=== PATIENT | male | born 1985 | race Caucasian/White ===

== ENCOUNTER 2016-09-26 11:44 | Emergency (ER) | payer OTHER ==
[~2016-09-26] VITALS: Wt 81.0 kg
[~2016-09-26 11:44] MED LIST: CALC1TAB26 PO; DOCU-144 PO; FAMO-18 PO; HYDR25SU23 PR; HYDR25SU24 PR; MAG355OR15 PO; OMEP20CA16 PO
--- NOTE | 2016-09-26 12:28 | ERD ---
ER Documentation Chief Complaint Date/Time DATE: 09/26/16 TIME: 12:21 Chief Complaint HEADACHE X 4 DAYS HPI 31-year-old male presents to the emergency room for left-sided headache for about 5 days. Pain was described as achy non-radiating with pain rate of 2/10 at this time. He also stated that his headache was mostly on his left frontal maxillary area especially on palpation. Stated that his headache is no specific time and date of onset, but it started gradually. When asked when his headache exactly started, patient's stated that he has this kind of headache that is on and off for about a year and he last seen his primary care physician 2 months ago for the same headache. He was also referred to yeast fermentation attendant last month and was told that that his vision is normal. He also stated that his symptoms is worse whenever his knees and whenever he has seasonal allergies. Denies that this is the worst headache of his life, seizure activity, head trauma, loss of consciousness, dizziness, blurry vision, pain on eye movement, changes in his vision, photophobia, ear pain, throat pain, difficulty swallowing , neck pain, neck tenderness, shoulder pain, chest pain, cough, hemoptysis, abdominal pain, back pain, loss of appetite, nausea, vomiting, hematochezia, diarrhea, constipation, urinary symptoms, bladder and bowel incontinences, extremity weakness, extremity tenderness, numbness or tingling sensation, difficulty walking, recent travel, recent exposure to illness, recent antibiotic use in the last 3 months, fever, chills. Allergy: Tetracycline. Reaction hives. Past medical history of high cholesterol (not on medications anymore), seasonal allergies. Family history: Denies family medical history of stroke, cardiac before the age of 50. Medication: Betzy. Social: Works at a [employer]. 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 Occasional drinks alcoholic beverages (5 beers every Tuesday). Denies smoking, use of illicit drugs. ROS All systems reviewed and are negative except as per history of present illness. Medications Home Meds Active Scripts Fluticasone Propionate (Flonase Allergy Relief) 9.9 Ml [place].susp, 2 SPRAY NASAL DAILY, #1 BOTTLE TO EACH NOSTRIL Prov:TALHA CH 09/26/16 Pseudoephedrine Hcl (Sudafe 12-Hour) 120 Mg Tablet.er, 120 MG PO BID Y for CONGESTION, #14 TAB.SA Prov:TALHA CH 09/26/16 Naproxen* (Naprosyn*) 500 Mg Tablet, 500 MG PO BID Y for PAIN, #20 TAB Prov:TALHA CH 09/26/16 Calcium Carbonate/Simethicone (Maalox Advanced Tab Chew) 1 Each Tab.chew, 1 TAB PO BEFORE MEALS for PAIN, #30 TAB.CHEW Prov:BLADIMIR MONROE MD 03/02/16 Docusate Sodium* (Colace*) 100 Mg Capsule, 100 MG PO TID, #30 CAP Prov:BLADIMIR MONROE MD 03/02/16 Omeprazole* (Omeprazole*) 20 Mg Capsule.dr, 20 MG PO DAILY, #30 CAP Prov:BLADIMIR MONROE MD 03/02/16 Hydrocortisone Acetate (Anusol-Hc) 25 Mg Supp.rect, 1 SUPP WY BID Y for HEMORROID PAIN/ITCHING, #12 SUPP.RECT Prov:BLADIMIR MONROE MD 03/02/16 Hydrocortisone Acetate* (Anusol-HC*) 25 Mg/Supp.rect Supp.rect, 25 MG W[place] BID Y for PAIN, #30 SUPP.RECT Prov:ITALO TINSLEY MD 06/10/15 Famotidine* (Pepcid*) 20 Mg Tablet, 20 MG PO BID, #30 TAB Prov:ITALO TINSLEY MD 06/10/15 Mag Hydrox/Al Hydrox/Simeth (Maalox Ms Liquid) 360 Ml Oral.susp, 2 TSP PO TID for PAIN, #24 OZ Prov:ITALO TINSLEY MD 06/10/15 Docusate Sodium* (Colace*) 100 Mg Capsule, 100 MG PO BID for CONSTIPATION, #30 Prov:ITALO TINSLEY MD 06/10/15 Allergies Allergies: Coded Allergies: tetracycline (Verified Allergy, Mild, RASH, 03/02/16) PMhx/Soc History of Surgery: Yes (Hemmorhoids removal 6 yrs ago) Anesthesia Reaction: No Hx Neurological Disorder: No Hx Respiratory Disorders: No Hx Cardiac Disorders: Yes Hx Psychiatric Problems: No Hx Miscellaneous Medical Probl: No Hx Alcohol Use: No Hx Substance Use: No Hx Tobacco Use: No Physical Exam Vitals Vital Signs Date Time Temp Pulse Resp B/P Pulse Ox O2 Delivery O2 Flow Rate FiO2 09/26/16 11:53 98.0 78 18 128/71 99 Physical Exam CONSTITUTIONAL: Well-appearing; well-nourished; in no apparent distress. HEAD: Normocephalic; atraumatic. EYES: Conjunctiva clear, sclera non-icteric, EOM intact. PERRL. No pain on eye movement. Observed reading without difficulty. Ears: Hearing intact. EACs clear, TMs non-bulging, non-inflamed, translucent & mobile, ossicles normal appearance, No obstructions, no erythema, no discharges Nose: No obstructions. No polyps. No external lesions. Mild congestion. No external lesions, septum and turbinates normal. No rhinorrhea. No discharges. Frontal sinus is non-tender to palpation. Left maxillary sinus is tender to palpation. MOUTH: Moist mucous membranes, no lesion, no obstructions, no vesicles, no thrush, patent airway Throat: Uvula in midline. Right tonsil is +1 with no erythema, no exudate. Left tonsil is +1 with no erythema, no exudate. Tolerating secretions well. Good gag reflex. Patent airway. Neck: Supple, without lesions, bruits, or adenopathy. No mass. Thyroid non- enlarged and non-tender to palpation. CHEST: Symmetrical chest. Respirations even and not labored. No retractions noted. CARDIOVASCULAR: Normal S1, S2. RRR. No murmurs, gallops. RESPIRATORY: Normal chest excursion with respiration; breath sounds clear and equal bilaterally; no wheezes, rhonchi, or rales. Breathing even and unlabored. Speaking in clear, full, and complete sentences w/ ease. ABDOMEN: Normal bowel sounds normal. Soft, round, non-distended, non-guarding, no tenderness, no rebound, no organomegaly, no masses, no pulsating abdominal mass. No hernia. No peritoneal signs. : No CVA tenderness. BACK: Symmetrical shoulder. Spine is midline without deformity, tenderness. No evidence of trauma or deformity. PELVIS: Stable pelvis. No evidence of trauma or deformity. MUSCULOSKELETAL: Normal gait and station. No misalignment, asymmetry, crepitation, defects, tenderness, masses, effusions, decreased range of motion, instability, atrophy or abnormal strength or tone in the head, neck, spine, ribs , pelvis or extremities. No calf tenderness. NEUROVASCULAR: Distal pulses are present. Pedal pulse are present, equal, and normal. Capillary refills are < 2 seconds. NEUROLOGIC: Alert and oriented x4. Speaks full and clear sentences. Cranial Nerves II-XII normal. Sensation to pain, touch, and proprioception normal. Grossly unremarkable. No neurologic deficits. Romberg test is negative. PSYCHOLOGICAL: The patients mood and manner are appropriate. No hallucinations , delusions. Not SI. Not HI. Has the capacity to decide for self SKIN: Normal for age and ethnicity; warm; dry; good turgor; no apparent lesions or exudates. No rashes, hives, discoloration. Intact. Procedures/MDM Examination: Please see physical examination. Disease process, medical treatment was explained to the patient and family member. They verbalized understanding and agreed with the diagnostic tests, medical treatment, and follow-up care. Re-evaluation: Patient is alert oriented 4. Extraocular movement of the eye is intact. No pain on eye movement. Was observed reading with comfort. No vomiting. No neurological deficit. Romberg test is negative. Consultation: None. Differential diagnosis: Subarachnoid hemorrhage versus stroke versus meningitis versus sinusitis versus sinus headache versus upper respiratory infection Medical decision makin-year-old male presents to the emergency room for left-sided headache for about 5 days. Pain was described as achy non-radiating with pain rate of 2/10 at this time. He also stated that his headache was mostly on his left frontal maxillary area especially on palpation. Stated that his headache is no specific time and date of onset, but it started gradually. When asked when his headache exactly started, patient's stated that he has this kind of headache that is on and off for about a year and he last seen his primary care physician 2 months ago for the same headache. He was also referred to yeast fermentation attendant last month and was told that that his vision is normal. He also stated that his symptoms is worse whenever his knees and whenever he has seasonal allergies. Medications prescribed are the following: Naprosyn, Sudafed, Flonase. Patient and family member are made aware of the side effects and adverse reactions of the medications prescribed. Instructed on when to seek emergent and medical attention in case allergic/anaphylactic reactions or severe side effects and or adverse reactions to medications. Patient and family member verbalized understanding. Patient instructed Instructed to follow-up with his PCP in 24-48 hours. Patient stated that he will see his PCP in the next 24-48 hours. Instructed to Call 911 for chest pain, shortness of breath. Advised to come back here in ED as soon as possible for severity of symptoms which includes but not limited to: any new symptoms; shortness of breath/difficulty of breathing; cardiovascular changes; severe gastrointestinal symptoms; signs and symptoms of bleeding and or infection; signs of compartment syndrome/neurovascular changes; neurological changes/deficits. Patient and family member verbalized understanding. Upon discharge, patient is alert and oriented x 4, speaks full and clear sentences, denies pain, has no neurological deficits, has no neurovascular deficits, difficulty of breathing. Breathing even and unlabored. Lung sounds are clear to auscultation. Not in distress. Appears comfortable. Ambulatory with steady gait. Appears satisfied with care provided here in ED. Departure Diagnosis: Primary Impression: Headache Additional Impression: Sinus headache Condition: Good Additional Instructions: Patient instructed Instructed to follow-up with his PCP in 24-48 hours. Patient stated that he will see his PCP in the next 24-48 hours. Instructed to Call 911 for chest pain, shortness of breath. Advised to come back here in ED as soon as possible for severity of symptoms which includes but not limited to: any new symptoms; shortness of breath/difficulty of breathing; cardiovascular changes; severe gastrointestinal symptoms; signs and symptoms of bleeding and or infection; signs of compartment syndrome/neurovascular changes; neurological changes/deficits. Patient and family member verbalized understanding. TALHA CH Sep 26, 2016 12:28
[2016-09-26] MEDS ORDERED: NAPR-260 PO (12:29)
[2016-09-26] MEDS ORDERED: FLUT9.9S NASAL (12:30)
[2016-09-26] MEDS ORDERED: PSEU120T11 PO (12:30)
== END 2016-09-26 13:03 | disposition home or self-care (01) ==
LOC: FTE 11:44
DX: R51 Headache (principal)
CPT/HCPCS: 99283

== ENCOUNTER 2016-12-08 12:38 | Day surgery (SDC) | payer OTHER ==
[~2016-12-08] VITALS: Ht 170.2 cm; Wt 87.6 kg
[~2016-12-08 12:38] MED LIST changes: +FLUT9.9S NASAL; +NAPR-260 PO; +PSEU120T11 PO
[2016-12-08] MEDS ORDERED: GEMFIBROZIL (14:31)
[2016-12-08 14:33] VITALS: Ht 170.2 cm; Wt 87.6 kg
[2016-12-08] MEDS ORDERED: OMEPRAZOLE (14:41)
[2016-12-08 14:56] VITALS: BP 108/63; PULSE 66; RESP 15
[2016-12-08] MEDS ORDERED: MIDAZOLAM 1 MG/ML 2 ML INJ ONE ×2 (16:35)
[2016-12-08] MEDS ORDERED: FENTAnyl 50 MCG/ML VIAL ONE (16:35)
[2016-12-08 17:05] VITALS: BP 123/78; PULSE 78; RESP 16
--- NOTE | 2016-12-08 23:36 | GILP ---
DATE OF PROCEDURE: NAME OF PROCEDURE: Esophagogastroduodenoscopy with biopsies. SURGEON: Jen Bosch MD HISTORY AND INDICATIONS: The patient is being evaluated for persistent reflux symptoms. PREMEDICATION: Monitored anesthesia care by anesthesiologist. INSTRUMENT USED: Olympus panendoscope. TECHNIQUE: After informed consent, with the patient/relatives understanding the procedure, its cholo cations, potential risks and complications including but not limited to: allergic reaction, bleeding , perforation or infection, and after all pertinent questions were answered to the patients satisfac tion, the patient/relatives signed witnessed informed consent. Following this, premedication was administered slowly IV push under careful cardiovascular and respi ratory monitoring with pulse oximetry, automatic blood pressure and banquet kitchen supervisor. Once the sedative effect was achieved, the patient was placed in the left lateral decubitus, the al endoscope was introduced and advanced under visual control. Careful examination of the upper gastrointestinal tract both on insertion as well as withdrawal of t he instrument disclosed the following findings: ESOPHAGUS: The distal esophagus shows erythema and edema of the mucosa of a moderate degree. STOMACH: Upon entrance to the stomach, air was insufflated. The gastric mendez distended normally. The mucosa of the fundus, body and antrum of the stomach was carefully examined, shows erythema and edema of the mucosa of a moderate degree. Biopsies were obtained to rule out H. pylori infection. PYLORUS: The pylorus appears patent and within normal limits, with no evidence of gastric outlet ob struction. DUODENUM: The duodenal mucosa was carefully examined in the duodenal bulb as well as the second por tion of the duodenum and appears unremarkable with no evidence of duodenitis, ulcer or neoplasm. The instrument was then withdrawn. The patient tolerated the procedure well and was transferred out of the endoscopy suite awake and in good condition to continue recovery under observation IMPRESSION: 1. Distal esophagitis. 2. Gastritis, rule out Helicobacter pylori infection. Biopsies obtained. PLAN: The patient will be treated with PPIs. Pathology will be reviewed as soon as available. Fur ther recommendations will depend on the patient's clinical course as well as review of biopsies. Dictated By: JEN BOSCH MS/KELLY Conf#: [id number] DID#: [id number]
== END 2016-12-08 18:18 | disposition home or self-care (01) ==
LOC: GIL 12:38
PROVIDERS: ATTEND Internal Medicine Gastroenterology
DX: K20.8 Other esophagitis (principal); K29.70 Gastritis, unspecified, without bleeding; E78.00 Pure hypercholesterolemia, unspecified
CPT/HCPCS: 43239; 88305; 88312; J2250; J3010; Z7610